=== PATIENT | female | born 1990 | race Two or more races ===

== ENCOUNTER 2023-02-07 20:59 | Emergency (ER) | payer MEDICAID ==
[~2023-02-07] VITALS: Ht 165.1 cm; Wt 88.5 kg
[2023-02-07 21:44] VITALS: BP 94/77; TEMP 98.1; O2SAT 98
== END 2023-02-07 21:45 | disposition left against medical advice (07) ==
LOC: ER 21:01
DX: S01.01XA Laceration without foreign body of scalp, initial encounter (principal); W22.8XXA Striking against or struck by other objects, initial encounter; Y93.89 Activity, other specified; Y92.89 Other specified places as the place of occurrence of the external cause; Y99.8 Other external cause status